=== PATIENT | male | born 1975 | race African-American/Black ===

== ENCOUNTER 2018-09-27 00:25 | Inpatient (IN) | payer OTHER ==
--- NOTE | 2018-09-27 06:04 | HP ---
CHIEF COMPLAINT: AMS PCP: HISTORY OF PRESENT ILLNESS: Patient is a 43 y/o male with a history of anxiety who presents for ams. Patient is a poor historian, most obtained from his girlfriend. They were at a bus stop around 11 pm when he lowered himself to the ground face first and was in a position. Per her he was not shaking. He did not become responsive until around 2 am. Patient has one episode of this in the past 7 months ago. He went to the hospital at nothing was found. Patient denies seizure history and no familial history. Patient denies taking any medications or drugs. Denies drinking and smoking. When asked if he had chest pain he said yes, and it was a pressure. He also stated yes to shortness of breath, tingling, abdominal pain, nausea, and tingling. Denies fevers, chills, and diarrhea. During conversation patient would randomly take large gasps of air stating he was short of breath. O2 sat remained normal throughout examination *unable to review prior history as [facility] down at this time ER course was notable for: (1) (2) (3) Recent Travel: PAST MEDICAL HISTORY: anxiety PAST SURGICAL HISTORY: Social History: Smoking: denies Alcohol: denies Drugs: denies Family History: HOME MEDICATIONS: REVIEW OF SYSTEMS unable to thoroughly review PHYSICAL EXAMINATION GENERAL: Awake, takes gasps of air every few minutes, only oriented to person HEAD: Normal with no signs of trauma. EYES:pupils not constricted, slight nstygmus seen, patient uncooperative with exam NECK: Normal range of motion, supple without lymphadenopathy, JVD, or masses. LUNGS: Breath sounds equal, clear to auscultation bilaterally. No wheezes, and no crackles. No accessory muscle use. HEART: Regular rate and rhythm, normal S1 and S2 without murmur, rub or gallop. ABDOMEN: Soft, nontender, not distended, normoactive bowel sounds, no guarding, no rebound, no masses. No hepatomegaly or splenomegaly. LOWER EXTREMITIES: 2+ pulses, warm, well-perfused. No calf tenderness. No peripheral edema. SKIN: Warm, dry, normal turgor, no rashes or lesions noted, normal capillary refill. ASSESSMENT/PLAN: #AMS Likely 2/2 to anxiety/psych condition Cannot r/o seizure, rhabdo, drug not in the U tox Utox negative Ordered tsh, ck, lactic acid, RPR, B12, folate, UA, trop via paper chart in ED please order brain MRI, echo, carotid doppler, eeg please consult neuro, Dr. Sewell please place Seizure precautions Neuro checks #Chest pressure Less suspicions for ACs but cannot r/o, likely 2/2 to anxiety ekg : RRR, no abnormalities noted, QTC: 398 f/u troponin, repeat trop 4 hours after ED one drawn, f/u with ED and lab for results Would repeat EKG please order Continuous cardiac monitoring #hx of anxiety Not on medication Consider psych consult #DVT ppx please place on Lovenox 40 FEN NPO Dispo: monitor on tele, patient needs admit orders Visit type - Emergency Visit Emergency Visit: Yes ED Registration Date: 09/27/18 Care time: The patient presented to the Emergency Department on the above date and was hospitalized for further evaluation of their emergent condition. - New Patient This patient is new to me today: Yes Date on this admission: 09/28/18 - Critical Care Critical Care patient: No
--- NOTE | 2018-09-27 06:09 | PN ---
Teaching Attending Note Name of Resident: Ivette Andersen ATTENDING PHYSICIAN STATEMENT I saw and evaluated the patient. I reviewed the resident's note and discussed the case with the resident. I agree with the resident's findings and plan as documented. SUBJECTIVE: Patient is a 43 year old man with a PMH of anxiety (not on any prescribed medications) and tobacco use who presents to the ER after a witnessed syncopal episode by girl friend at a bus stop. Patient reportedly fell to the ground while at the bus stop on their way from work. 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 The history was obtained from the girl friend. She noted the patient experienced emotional upset due to a phone call. There was no associated fecal or urinary incontinence and no seizure-like activity noted. He was not feeling ill prior to today and had not had any sick contact. He reportedly had a similar episode 7 months ago and was evaluated at a hospital in the [place] where he spent only one night and was not discharged on any medications. As per his girlfriend, he does not use any illicit drugs, does not abuse alcohol and as far as she knows, there is no family history of epilepsy. In the ER, patient had remained somnolent but arousable, has amnesia to the event and initially was gasping intermittently. No nausea, fever or chills, though he says yes when asked about chest or abdominal pain. No head trauma. OBJECTIVE: Somnolent but arousable. Afebrile with stable vitals and normal oxygen saturation HEENT: No Jaundice, eye redness or discharge, PERRLA, EOMI. Normocephalic, atraumatic. External ears are normal and hearing is grossly intact. No nasal discharge. Neck: Supple, nontender. No palpable adenopathy or thyromegaly. No JVD Chest: Good effort. Clear to auscultation and percussion. Heart: Regular. No S3, rub or murmur Abdomen: Not distended, soft, nontender and no HSM. No rebound or guarding. Normal bowel sounds. Ext: Peripheral pulses intact. No leg edema. Skin: Warm and dry. No petechiae, rash or ecchymosis. Neuro: Somnolent but arousable. Oriented to person. Moves all limbs. CN 2-12 grossly intact. Sensation grossly intact in all four extremities and DTR are symmetric. Psych: Unable to assess. ASSESSMENT AND PLAN: 1. Syncope - [employer] system was down so his laboratory values could not be uploaded. Etiology of syncope unclear. A vasovagal event or partial complex seizure are likely culprits. Head CT without contrast didnot show any abnormality and urine toxicology screen is negative. EKG shows NSR with no significant ST-T wave changes. Urinalysis, CPK and troponin are pending. Will admit to telemetry, get brain MRI, fasting lipids, carotid doppler, ECHO, EEG and TSH. Will do neurochecks and implement fall, seizure and aspiration precautions. Speech and swallow evaluation. Consult PT and neurology. 2. Tobacco Use Counseled on risks associated with tobacco use. We will provide patient all the necessary assistance to facilitate smoking cessation and prescribe Nicotine patch. 3. DVT prophylaxis - Lovenox 40 mg SQ q 24 hours. 4. Advance directives - Full code
--- NOTE | 2018-09-27 06:13 | PDOC ---
History of Present Illness - General Stated Complaint: UNCONSIOUS Time Seen by Provider: 09/27/18 00:38 ED Treatment Course - LABORATORY CBC & Chemistry Diagram: 09/27/18 01:20 09/27/18 01:20 - RADIOLOGY Radiology Studies Ordered: Category Date Time Status HEAD CT WITHOUT CONTRAST [CT] Stat CT Scan 09/27/18 00:38 Taken CHEST X-RAY PORTABLE* [RAD] Stat Radiology 09/27/18 00:38 Taken
[2018-09-27 06:39] LABS: CREATININE 1.2 mg/dL (0.55-1.3)
[2018-09-27 06:40] LABS: ALBUMIN 4.7 g/dl (3.4-5.0); CO2 24 mmol/L (21-32)
[2018-09-27 06:44] LABS: COCAINE, UR NEGATIVE ng/ml (CUTOFF=300); METHADONE, UR NEGATIVE ng/ml (CUTOFF=300); OPIATES, URI NEGATIVE ng/ml (CUTOFF=300); PHENCYCLIDINE,URINE NEGATIVE ng/ml (CUTOFF=25); URINE AMPHETAMINES NEGATIVE ng/ml (CUTOFF=500); URINE BARBITURATES NEGATIVE ng/ml (CUTOFF=200); URINE BENZODIAZEPINES NEGATIVE ng/ml (CUTOFF=200)
[2018-09-27 07:27] LABS: BASO % 0.5 % (0-2.0); EOS % 3.2 % (0-4.5); HEMATOCRIT 48.5 % (35.4-49); HEMOGLOBIN 15.8 GM/dL (11.7-16.9); LYMPH % 27.8 % (8-40); MCH 30.6 pg (25.7-33.7); MCHC 32.6 g/dl (32.0-35.9); MEAN CELL VOLUME 93.8 fl (80-96); MONO % 7.6 % (3.8-10.2); NEUT % 60.9 % (42.8-82.8); PLATELET COUNT 242 K/MM3 (134-434); RBC 5.17 M/mm3 (4.00-5.60); RDW 14.5 % (11.9-15.9); WHITE BLOOD COUNT 7.3 K/mm3 (4.0-10.0)
[2018-09-27 07:39] LABS: PH,URINE >= 9.0 (5.0-8.0); URINE APPEARANCE CLEAR; URINE BILIRUBIN NEGATIVE (NEGATIVE); URINE COLOR YELLOW; URINE GLUCOSE (UA) NEGATIVE (NEGATIVE); URINE KETONE NEGATIVE (NEGATIVE); URINE LEUK ESTERASE NEGATIVE (NEGATIVE); URINE NITRITE NEGATIVE (NEGATIVE); URINE PROTEIN NEGATIVE (NEGATIVE); URINE UROBILINOGEN 0.2 mg/dL (0.2-1.0)
[2018-09-27 08:25] LABS: ALK PHOS 84 U/L (45-117); ANION GAP 8 MMOL/L (8-16); BILIRUBIN,TOTAL 0.8 mg/dL (0.2-1); BLOOD UREA NITROGEN 7 mg/dL (7-18); CALCIUM 9.7 mg/dL (8.5-10.1); CHLORIDE 106 mmol/L (98-107); GLUCOSE,RANDOM 102 mg/dL (74-106); POTASSIUM 4.3 mmol/L (3.5-5.1); SGOT/AST 19 U/L (15-37); SGPT/ALT 22 U/L (13-61); SODIUM 137 mmol/L (136-145); TOT PROT 8.6 g/dl (6.4-8.2)
[2018-09-27] MEDS ORDERED: THIAMINE HCL 200 MG/2 ML VIAL ONE (10:27)
[2018-09-27] MEDS ORDERED: THIAMINE HCL 200 MG/2 ML VIAL IVPB ONE (10:30)
--- NOTE | 2018-09-27 14:06 | PN ---
Teaching Attending Note Name of Resident: Ever Gonzales ATTENDING PHYSICIAN STATEMENT I saw and evaluated the patient. I reviewed the resident's note and discussed the case with the resident. I agree with the resident's findings and plan as documented. SUBJECTIVE: no fever or chills, feels a little better. He has difficulty with speaking but this is, per him, off and on. he does not remember what exactly happened last night . he denies HAAS, fever or chills, no neck stiffness. feels numb over R posterior shoulder . no weakness. denies herpes lesions. denies STds. last HIV was neg, but consents for repeat OBJECTIVE: NAD, awake, alert , cooperative.Knows he is in hospital, not exact location, knows year and month but not date, does know his age. dysrthric speech , no facial droop. difficulty finding words. EOMI. no neck stiffness. MMM CV; RRR, no mRG Lungs: CTAB Abd:soft, NT, ND , NLBS . skin: no rash Ext: no edema or erythema. Neuro: dysrthric speech , no facial droop. difficulty finding words. EOMI. horizontal nystagmus. nl facial sensation , strength 5/5 in upper and lower extremities proximally and distally. sensation to light touch is normal even over R posterior shoulder. reflexes : 1+ knee jerk, and biceps b/l. neg Babinski 's . Gait: he became very light headed and had vertigo when he stood up. Not able to walk ASSESSMENT AND PLAN: 43 y/o man with h/o Anxiety/panic attacks, syncope 7 months ago, who was brought due to AMS, and ? syncope. 1- Altered mental status: Patient seem to have dysarthria, difficulty finding words, and not completely oriented. Not clear of etiology. neuro exam is otherwise normal. has vertigo with position change but orthostatics are neg for any significant drop. ? encephalitis. doubt seizure with prolonged postictal period. unlikley stroke, but can't r/o 100 %. ? Lyme . No obvious metabolic causes. urine tox screen neg. denies alcohol use. - order EEG - order MRI of brain - give 500 mg of thiamine then will d/w neuro - order TSH, RVR, B12, HIV - order HSV PCR - will d/w neuro the need for LP if no obvious cause . - order lyme serology - obtain full comprehensive tox screen - obtain records from OSH where he was admitted for syncope 7 months ago - tele to detect any arrhythmias _ Neuro c/s pending dispo : [facility]
--- NOTE | 2018-09-27 15:31 | CONSULT ---
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 Presents after L occipital headache this AM, followed by brief period of "hyperventilation" "nausea" and "dizziness (lightheadedness)" and lowered himself to his knees. He then believes he lost consciousness, and his girlfriend reports his "whole body was shaking" and he was not responding to her talking or shaking him. Per girlfriend, this lasted about 5 minutes. Pt denies urinary incontinence or biting of the tongue. He describes this as a "panic attack" and felt something "similar, but "not as severe" approximately 7 months ago. Pt is unable to provide cogent history and notes headaches occurring infrequently. Head CT (reviewed): essentially normal study ELSIE: BP supine 109/88, sitting 117/88, 120/89 standing. Cor reg. No bruit. Neck supple. No evidence of head trauma. NEURO: Awake, alert, stuttered speech. recalls "Hospital" "2018. TRUMP- PMURT. 07/02 recall @ 3 min. Mild static encephalopathy present. CNII-CNXII: EOM's full without nystagmus. Full jordan. No facial. Motor: No drift. Strength normal. Reflexes normal. Plantars silent. Coordination: No FTN dystaxia Sensation: Normal to vibration Gait: Pt experiences "dizziness" upon standing Impression: Mild static encephalopathy Syncope vs. Seizure (convulsive syncope) ? Acute Migraine (possible vertebrobasilar in nature) Suggest: Continue Orthostatic BP's Await MRI of brain (C+/-) Await lab routines Cardiology consult/telemetry Consider treatment with cocktail of Sumatriptan 6 mg sq x1, Reglan 10 mg IVP x1, O2 therapy via N/C @ 6 L if headache persists. Thank you very much, Reji Sewell MD
--- NOTE | 2018-09-27 16:09 | PN ---
Physical Exam: SUBJECTIVE: Patient seen and examined at bedside. pt says he thinks this was one of his panic attacks, although does not remember exactly what happened last night. endorses trouble expressing himself/finding the right words to say. denies fever, chills, HAAS, neck stiffness, sob, n/v/d, urinary sxs. denies hx STDs, herpes, HIV. pt cant remember where his pharmacy is or who his PCP is or what meds he takes OBJECTIVE: Vital Signs Period Temp Pulse Resp BP Sys/Gonzalez Pulse Ox Last 24 Hr 65-94 13 109-120/83-89 100-100 GENERAL: AOX2-3, cant remember which hospital he is in. NAD HEAD: NCAT EYES: PERRL, EOMI, horizontal nystagmus. sclera anicteric, conjunctiva clear. No ptosis. ENT: nares patent, oropharynx clear without exudates, MMM NECK: Trachea midline, full range of motion, supple. LUNGS: CTAB HEART: RRR, S1, S2 without murmur, rub or gallop. cp reproducible when palpated by hand, however when press down w/ stethoscope pt expresses no discomfort ABDOMEN: Soft, NTND, normoactive bowel sounds, no guarding, no rebound, no hepatosplenomegaly, no masses. EXTREMITIES: 2+ pulses, warm, well-perfused, no edema. NEUROLOGICAL: Cranial nerves II through XII grossly intact. gait not observed, pt unable to walk due to dizziness. dysarthric speech w/ expressive aphasia/ difficulty finding words. +horizontal nystagmus. strength sensation grossly intact. neg Babinski's. PSYCH: Normal mood, normal affect. SKIN: Warm, dry, normal turgor, no rashes or lesions noted Laboratory Results - last 24 hr 09/27/18 09/27/18 09/27/18 01:20 01:20 01:20 WBC 7.3 RBC 5.17 Hgb 15.8 Hct 48.5 MCV 93.8 MCH 30.6 MCHC 32.6 RDW 14.5 Plt Count 242 MPV 9.0 Absolute Neuts (auto) 4.4 Neutrophils % 60.9 Lymphocytes % 27.8 Monocytes % 7.6 Eosinophils % 3.2 Basophils % 0.5 Nucleated RBC % 0 Sodium 137 Potassium 4.3 Chloride 106 Carbon Dioxide 24 Anion Gap 8 BUN 7 Creatinine 1.2 Est GFR (CKD-EPI)AfAm 86.53 Est GFR (CKD-EPI)NonAf 74.66 Random Glucose 102 Calcium 9.7 Total Bilirubin 0.8 AST 19 ALT 22 Alkaline Phosphatase 84 Creatine Kinase 303 Creatine Kinase Index 0.3 CK-MB (CK-2) < 1.0 Troponin I < 0.02 Total Protein 8.6 H Albumin 4.7 TSH Urine Color Yellow Urine Appearance Clear Urine pH >= 9.0 H Ur Specific [place] 1.016 Urine Protein Negative Urine Glucose (UA) Negative Urine Ketones Negative Urine Blood Negative Urine Nitrite Negative Urine Bilirubin Negative Urine Urobilinogen 0.2 Ur Leukocyte Esterase Negative Opiates Screen Methadone Screen Barbiturate Screen Phencyclidine Screen Ur Amphetamines Screen MDMA (Ecstasy) Screen Benzodiazepines Screen Cocaine Screen U Marijuana (THC) Screen 09/27/18 09/27/18 09/27/18 01:20 10:20 10:20 WBC RBC Hgb Hct MCV MCH MCHC RDW Plt Count MPV Absolute Neuts (auto) Neutrophils % Lymphocytes % Monocytes % Eosinophils % Basophils % Nucleated RBC % Sodium Potassium Chloride Carbon Dioxide Anion Gap BUN Creatinine Est GFR (CKD-EPI)AfAm Est GFR (CKD-EPI)NonAf Random Glucose Calcium Total Bilirubin AST ALT Alkaline Phosphatase Creatine Kinase Creatine Kinase Index CK-MB (CK-2) Troponin I Total Protein Albumin TSH Cancelled 0.33 L Urine Color Urine Appearance Urine pH Ur Specific [place] Urine Protein Urine Glucose (UA) Urine Ketones Urine Blood Urine Nitrite Urine Bilirubin Urine Urobilinogen Ur Leukocyte Esterase Opiates Screen Negative Methadone Screen Negative Barbiturate Screen Negative Phencyclidine Screen Negative Ur Amphetamines Screen Negative MDMA (Ecstasy) Screen Negative Benzodiazepines Screen Negative Cocaine Screen Negative U Marijuana (THC) Screen Negative [id number] CT/HEAD CT WITHOUT CONTRAST Change in mental status. CT scan of the brain without intravenous contrast No prior is available for comparison. There is minimal volume loss which is nonspecific. The ventricles and basal cisterns appear unremarkable. No mass lesion, acute infarct or intracranial hemorrhage are identified. There is no shift of the midline structures.. 2 cm retention cyst versus polyp in the left maxillary antrum. Minimal mucosal thickening in the ethmoid air cells. Subcentimeter retention cyst versus polyp in the right maxillary antrum. The mastoid air cells are well aerated and the calvarium is intact. IMPRESSION: Minimal volume loss which is nonspecific. No CT evidence of acute intracranial pathology is identified. Left and smaller right maxillary antral retention cyst versus polyp, as described above. Reported By: Teresa Vee MD 09/27/18 0850 ekg : RRR, no abnormalities noted, QTC: 398 ASSESSMENT/PLAN: 43 yo M PMH anxiety/panic attacks, syncope 7 months ago, p/w AMS?, and syncope? . #questionable Acute metabolic encephalopathy - unclear etiology. pt is non septic appearing, afebrile w/ VSS, orthostatics neg. No obvious metabolic causes , Utox negative, denies alcohol use. less likely stroke, CT head neg for acute pathology, will need MRI. seizure also unlikely given such a prolonged postictal period. possibly 2/2 to anxiety/other psych condition. will need further w/u to help determine ddx Neuro exam noted for AOX2-3, cant remember which hospital he is in. dysarthric speech w/ expressive aphasia/difficulty finding words. +horizontal nystagmus. gait not observed, pt unable to walk due to dizziness/vertigo. consulted neuro, Dr. Sewell UA neg CK, TSH nl RPR, B12, folate, HIV HSV PCR lyme serology f/u MRI brain EEG will need to d/w neuro regarding any need for LP s/p IV thiamine 200 mg to cover ppx for [place] although will need more if determined to be likely cause of sxs monitor for withdrawal signs Seizure precautions Neuro checks tele monitor for arrhythmias #hx of anxiety pt cant remember where his pharmacy is or who his PCP is or what meds he takes Consider psych consult #DVT ppx SCDs, pending possible need for LP FEN PO hydration replete prn regular diet Dispo: tele Visit type - Emergency Visit Emergency Visit: Yes ED Registration Date: 09/27/18 Care time: The patient presented to the Emergency Department on the above date and was hospitalized for further evaluation of their emergent condition. - New Patient This patient is new to me today: Yes Date on this admission: 09/27/18 - Critical Care Critical Care patient: No
--- NOTE | 2018-09-27 17:18 | EKG ---
Test Reason : Blood Pressure : / mmHG Vent. Rate : 073 BPM Atrial Rate : 073 BPM P-R Int : 144 ms QRS Dur : 094 ms QT Int : 362 ms P-R-T Axes : 054 065 057 degrees QTc Int : 398 ms NORMAL SINUS RHYTHM NORMAL ECG NO PREVIOUS ECGS AVAILABLE Confirmed by AILEEN DIAZ MD ([id number]) on 09/27/2018 5:18:45 PM Referred By: Confirmed By:AILEEN DIAZ MD
--- NOTE | 2018-09-27 19:48 | PDOC ---
Documentation entered by Nita Linn SCRIBE, acting as scribe for Tita Oneill DO. Tita Oneill DO: This documentation has been prepared by the Kaveh quintana Sammi, SCRIBE, under my direction and personally reviewed by me in its entirety. I confirm that the documentation accurately reflects all work, treatment, procedures, and medical decision making performed by me. Attending Attestation - Resident Resident Name: Isi Sierra - ED Attending Attestation I have performed the following: I have examined & evaluated the patient, The case was reviewed & discussed with the resident, I agree w/resident's findings & plan - HPI HPI: 09/27/18 00:58 The patient is a 43 year old male who presents to the emergency department s/p witnessed syncopal episode by family at bedside. No associated trauma. Noted the patient experienced emotional upset due to a phone call. - Physicial Exam PE: 09/27/18 00:59 Agree with resident's exam. - Medical Decision Making 09/27/18 06:11 43 yo male s/p witnessed syncopal episode, pt now more awake and more able to answer questions at re-evaluation at 3 am, still exhibits slowed speech and amnesia to the event Plan for labs and CT scan with admission to medical service for further evaluation CT scan negative
[2018-09-27 23:01] VITALS: BMI 26.6
[2018-09-28 07:35] LABS: BASO % 0.8 % (0-2.0); EOS % 5.9 % (0-4.5); HEMOGLOBIN 13.9 GM/dL (11.7-16.9); LYMPH % 43.8 % (8-40); MCH 31.4 pg (25.7-33.7); MCHC 33.9 g/dl (32.0-35.9); MEAN CELL VOLUME 92.6 fl (80-96); MEAN PLT VOLUME 8.9 fl (7.5-11.1); MONO % 7.5 % (3.8-10.2); PLATELET COUNT 240 K/MM3 (134-434); RBC 4.43 M/mm3 (4.00-5.60); RDW 14.3 % (11.9-15.9); WHITE BLOOD COUNT 6.5 K/mm3 (4.0-10.0)
[2018-09-28 08:15] LABS: ALBUMIN 3.7 g/dl (3.4-5.0); BILIRUBIN,TOTAL 0.9 mg/dL (0.2-1); CALCIUM 8.9 mg/dL (8.5-10.1); CREATININE 1.1 mg/dL (0.55-1.3); MAGNESIUM 2.3 mg/dL (1.8-2.4); PHOSPHOROUS 4.3 mg/dL (2.5-4.9); TOT PROT 7.2 g/dl (6.4-8.2)
--- NOTE | 2018-09-28 14:35 | PN ---
Progress Note (short form) - Note Progress Note: NEUROLOGY PROGRESS: PT reporting he feels better than yesterday and more "alert" and "less confused. " Girlfriend over phone reporting he is "himself again." Ambulated with PT today without difficulty. Not reporting headache or "dizziness" at this time. Brain MRI (C+/C-) reviewed: essentially normal study ELSIE: BP supine 120/70, sitting unchanged. Neck supple. - Kernig's NEURO: Speech fluent with periods of stuttering. Mild static encephalopathy. Awake, alert, oriented x 3. Sensation: No FTN dystaxia. Romberg - Gait: Pt can walk on heels, toes, tandem without difficulty. Impression: Syncope/ possibly convulsive syncope with post-ictal confusion - resolved Mild Static Encephalopathy Suggest: Cardiology consult. Telemetry/holter Observe off AEDs at this time Neuro f/u as outpatient for EEG studies Thank you very much, Reji Sewell MD
--- NOTE | 2018-09-28 15:25 | PN ---
Teaching Attending Note Name of Resident: Ever Gonzales ATTENDING PHYSICIAN STATEMENT I saw and evaluated the patient. I reviewed the resident's note and discussed the case with the resident. I agree with the resident's findings and plan as documented. SUBJECTIVE: feels much stu teixeira has no fever or chills. feels his speech is back to normal, also his thinking is better . OBJECTIVE: NAD, awake, alert , oriented to place, self, time/date. knows president and more specific details about himself facial droop. difficulty finding words. EOMI. no neck stiffness. MMM CV; RRR, no mRG Lungs: CTAB Ext: no edema or erythema. Neuro: normal speech, ? stutter, no facial droop. EOMI. horizontal nystagmus. nl facial sensation , strength 5/5 in upper and lower extremities proximally and distally. reflexes: 1+ knee jerk, and biceps b/l. ASSESSMENT AND PLAN: 43 y/o man with h/o Anxiety/panic attacks, syncope 7 months ago, who was brought due to AMS, and ? syncope. 1- Altered mental status: still not clear of etiology. ? seizure with postictal confusion. Now back to his base line. event his vertigo, and headache resolved, and his gait has improved - tele with no events - EEG pending read - HSV and lyme serology to be followed as out pt - HIV neg - MRI with no pathology - f/u with card for a holter monitor if indicated . Monitoring for 24 hours is neg for arrhythmias - prescrbed BP cuf to check BP daily as he had one elevated value here dispo : dc home . did well with PT f/u with neuro, PCP and card and psych
--- NOTE | 2018-09-28 15:30 | DS ---
Physical Exam: SUBJECTIVE: atient seen and examined at bedside. no acute events. pt mental status improved today. today pt can remember where his pharmacy is and who his PCP is. pt says he has been prescribed meds for depression anxiety but rarely needs/uses them. denies fever, chills, HAAS, neck stiffness, sob, n/v/d, urinary sxs. denies hx STDs, herpes, HIV. OBJECTIVE: Vital Signs Period Temp Pulse Resp BP Sys/Gonzalez Pulse Ox Last 24 Hr 97.6 F-98.6 F 61-76 17-20 120-159/66-82 96-100 PHYSICAL EXAM GENERAL: AOX3, improved from yesterday, NAD HEAD: NCAT EYES: PERRL, EOMI. sclera anicteric, conjunctiva clear. No ptosis. ENT: nares patent, oropharynx clear without exudates, MMM NECK: Trachea midline, full range of motion, supple. LUNGS: CTAB HEART: RRR, S1, S2 without murmur, rub or gallop. ABDOMEN: Soft, NTND, normoactive bowel sounds, no guarding, no rebound, no hepatosplenomegaly, no masses. EXTREMITIES: 2+ pulses, warm, well-perfused, no edema. NEUROLOGICAL: Cranial nerves II through XII grossly intact. gait not observed, pt unable to walk due to dizziness. dysarthric/speech stutter (baseline). strength sensation grossly intact. neg Babinski's. PSYCH: Normal mood, normal affect. SKIN: Warm, dry, normal turgor, no rashes or lesions noted LABS Laboratory Results - last 24 hr 09/27/18 09/27/18 09/27/18 10:20 10:20 16:37 WBC RBC Hgb Hct MCV MCH MCHC RDW Plt Count MPV Absolute Neuts (auto) Neutrophils % Lymphocytes % Monocytes % Eosinophils % Basophils % Nucleated RBC % Sodium Potassium Chloride Carbon Dioxide Anion Gap BUN Creatinine Est GFR (CKD-EPI)AfAm Est GFR (CKD-EPI)NonAf Random Glucose Calcium Phosphorus Magnesium Total Bilirubin AST ALT Alkaline Phosphatase Total Protein Albumin Vitamin B12 426 Serum Folate 13 TSH 0.33 L Free T4 RPR Titer Nonreactive HIV Genotype Non reactive 09/28/18 09/28/18 06:30 06:30 WBC 6.5 RBC 4.43 Hgb 13.9 Hct 41.0 D MCV 92.6 MCH 31.4 MCHC 33.9 RDW 14.3 Plt Count 240 MPV 8.9 Absolute Neuts (auto) 2.7 Neutrophils % 42.0 L D Lymphocytes % 43.8 H D Monocytes % 7.5 Eosinophils % 5.9 H D Basophils % 0.8 Nucleated RBC % 0 Sodium 142 Potassium 4.0 Chloride 109 H Carbon Dioxide 26 Anion Gap 7 L BUN 12 Creatinine 1.1 Est GFR (CKD-EPI)AfAm 96.13 Est GFR (CKD-EPI)NonAf 82.94 Random Glucose 86 Calcium 8.9 Phosphorus 4.3 Magnesium 2.3 Total Bilirubin 0.9 AST 9 L ALT 16 Alkaline Phosphatase 68 Total Protein 7.2 Albumin 3.7 Vitamin B12 Serum Folate TSH Free T4 0.94 RPR Titer HIV Genotype ekg : RRR, no abnormalities noted, QTC: 398 2320-2630 CT/HEAD CT WITHOUT CONTRAST Change in mental status. CT scan of the brain without intravenous contrast No prior is available for comparison. There is minimal volume loss which is nonspecific. The ventricles and basal cisterns appear unremarkable. No mass lesion, acute infarct or intracranial hemorrhage are identified. There is no shift of the midline structures.. 2 cm retention cyst versus polyp in the left maxillary antrum. Minimal mucosal thickening in the ethmoid air cells. Subcentimeter retention cyst versus polyp in the right maxillary antrum. The mastoid air cells are well aerated and the calvarium is intact. IMPRESSION: Minimal volume loss which is nonspecific. No CT evidence of acute intracranial pathology is identified. Left and smaller right maxillary antral retention cyst versus polyp, as described above. Reported By: Teresa Vee MD 09/27/18 0850 [id number] MRI/BRAIN MRI W&W/O CONTRAST REASON FOR EXAM. CONFUSION WITHOUT OBVIOUS CAUSE. MRI OF THE BRAIN C-/C+. Multiple pulse sequences were completed utilizing the Ebuzzing and Teads 1.5 T. SiOx MRI system. Sagittal, coronal: T1. Axial: T2, FLAIR, T2 gradient echo, diffusion-weighted. Postcontrast images were obtained in axial, sagittal and coronal planes Patient received 17cc of gadolinium (Omniscan). Comparison study CT brain September 27, 2018 Findings. The intracranial contents are shown well from the vanessa magnum to the cranial vertex. The brain parenchyma displays normal signal intensity characteristics and architectural features throughout the entire cranial vault. There is no evidence of abnormal restricted diffusion in the brain to suggest acute or subacute infarction. No evidence of T2- hyperintense periventricular white matter or corpus callosal lesions, edema or hemorrhage. There is no mass effect, midline shift, intra or extra axial collections. Normal corpus callosum is noted. The CSF spaces including the ventricles, cisterns sulci are age-appropriate. The major caliber vascular structures of [place] and peripheral dural venous sinuses show flow void signal characteristics. No abnormality seen in the pontomedullary junction region. No evidence of Chiari malformation. Nonspecific mucosal changes are noted in the ethmoid air cells. Retention cysts in maxillary sinuses (left > right). The orbits are within normal limits. Symmetrical optic nerves, extraocular muscles. Normal signal intensity of retro orbital fat. The region of the CP angle cisterns appear normal. Normal signal intensity of the calvarium. Following intravenous infusion with gadolinium, no blood brain barrier defect, or abnormal focus of enhancement is seen. No evidence of leptomeningeal enhancement. Impression. Normal signal intensity of the brain parenchyma. Normal CSF spaces No evidence of edema, acute ischemia changes, hemorrhage or demyelinating process. Following intravenous infusion with gadolinium, no blood brain barrier defect, or abnormal focus of enhancement is seen. Reported By: Vinayak Anderson MD 09/28/18 0820 HOSPITAL COURSE: Date of Admission:09/27/18 HPI: Patient is a 43 y/o male with a history of anxiety who presents for ams. Patient is a poor historian, most obtained from his girlfriend. They were at a bus stop around 11 pm when he lowered himself to the ground face first and was in a position. Per her he was not shaking. He did not become responsive until around 2 am. Patient has one episode of this in the past 7 months ago. He went to the hospital at nothing was found. Patient denies seizure history and no familial history. Patient denies taking any medications or drugs. Denies drinking and smoking. When asked if he had chest pain he said yes, and it was a pressure. He also stated yes to shortness of breath, tingling, abdominal pain, nausea, and tingling. Denies fevers, chills, and diarrhea. During conversation patient would randomly take large gasps of air stating he was short of breath. O2 sat remained normal throughout examination Date of Discharge: 09/28/18 43 yo M PMH anxiety/panic attacks, syncope 7 months ago, p/w AMS?, and syncope? . Admitted for Acute metabolic encephalopathy and questionable syncope - unclear etiology. pt was non septic appearing, afebrile w/ VSS, orthostatics neg, UA neg. No obvious metabolic causes, B12, folate, CK, TSH nl, RPR, HIV, Utox negative, denies alcohol use. Neuro consulted, Melodie. CT head and MRI, reviewed above, and neg for acute pathology. HSV PCR, lyme serology pending (pt will f/u results outpt neuro). monitored on tele and w/o arrhythmias. s/p EEG ( pt will f/u results outpt neuro). no signs of withdrawal noted but pt ppx tx w / IV thiamine 200 mg x1 to cover for [place] pt presenting Neuro exam noted for AOX2-3, cant remember which hospital he is in. dysarthric/speech stutter (baseline) w/ expressive aphasia/difficulty finding words. +horizontal nystagmus?. gait not observed, pt was unable to walk due to dizziness/vertigo. pt was unable to remember where his pharmacy was or who his PCP was or what meds he takes today pt mental status improved, AOx3, no trouble expressing himself and remember where his pharmacy, pcp, etc... no nystagmus noted today unclear etiology of pt sxs, may be related to migraine vs per neuro, Syncope/ possibly convulsive syncope with post-ictal confusion - resolved seizure unlikely given such a prolonged postictal period. #HTN? - noted w/ elevated BP today. will give bp cuff and pt told to monitor bp at home and f/u w/ PCP outpt pt stable and ready for dc w/ appropriate f/u Minutes to complete discharge: 40 Discharge Summary Reason For Visit: AMS, SYNCOPE Current Active Problems Encephalopathy (Acute) Anxiety (Chronic) Depression (Chronic) Condition: Improved - Instructions Diet, Activity, Other Instructions: you came in because you were confused. your CT and MRI of your brain were normal and showed no signs of cancer, bleed or stroke your HIV test was negative you may have had a seizure or a migraine please follow up with Neurologist Dr Sewell within 1 week to review your EEG ( brain electrical activity) results, as well as your other lab results for lyme titers, Herpes to make sure they are negative your blood pressure was a little high. please measure your blood pressure at home. we will prescribe you a blood pressure cuff please resume your home meds please follow up with your PCP or with our clinic with Dr Knox within 1 week please follow up with your psychiatrist within 1 week if you have any worsening headaches, fevers, chills, nausea, vomit, please call 911 or go to the ER #tests that need to be followed as results are still pending: - HSV serlogy ( herpes ) - Lyme serology - EEG results # you need to folow up with a jewelry drill operator to further evaluate a holter monitor and other needed testing please see Dr. sierra for this Referrals: Roberto Knox MD [Staff Physician] - 1 Week Jackson Sierra MD [Staff Physician] - Reji Sewell MD [Staff Physician] - 1 Week Disposition: HOME - Home Medications Comprehensive Discharge Medication List: Ambulatory Orders Miscellaneous Medical Supply [Outpatient Order] 1 [facility] is new to me today: Yes Date on this admission: 09/28/18 Emergency Visit: Yes ED Registration Date: 09/27/18 Care time: The patient presented to the Emergency Department on the above date and was hospitalized for further evaluation of their emergent condition. Critical Care patient: No - Discharge Referral Referred to [facility] No
[2018-09-28 18:56] VITALS: BP 98/54; PULSE 73; TEMP -98.3
== END 2018-09-28 19:55 | disposition home or self-care (01) | DRG 71 ==
LOC: JER 00:25 → JERBED 04:00 → J4W 20:29
PROVIDERS: ADMIT Internal Medicine; ATTEND Internal Medicine
DX: G93.41 Metabolic encephalopathy (principal); R47.01 Aphasia; R55 Syncope and collapse; F41.8 Other specified anxiety disorders; R41.82 Altered mental status, unspecified; R47.1 Dysarthria and anarthria; H55.00 Unspecified nystagmus
CPT/HCPCS: 36415; 70450-TC; 70553-TC; 71045-TC-FY; 80053; 80307; 81003; 82550; 82553; 82607; 82746; 83735; 84100; 84439; 84443; 84484; 85025; 86593; 86618; 87389; 87529; 93005; 93010; 95816; 97116-GP; 97161-GP; 99284-25